=== PATIENT | female | born 1935 | race Caucasian/White ===

== ENCOUNTER 2021-07-07 13:40 | Emergency (ER) | payer MEDICARE, OTHER ==
[~2021-07-07] VITALS: Ht 165.1 cm; Wt 72.1 kg
[2021-07-07 13:54] LABS: COLLECTION METHOD CLEAN CATCH
[2021-07-07 14:00] LABS: PH 6 (5-8); SQUAMOUS EPITHELIAL 0-2 /hpf; URINE APPEARANCE Hazy; URINE BACTERIA None Seen /hpf; URINE BILIRUBIN Negative (NEGATIVE); URINE BLOOD Negative (NEGATIVE); URINE COLOR Yellow; URINE GLUCOSE Negative (NEGATIVE); URINE KETONE Negative (NEGATIVE); URINE LEUKOCYTE ESTERASE Trace (NEGATIVE); URINE NITRATE Negative (NEGATIVE); URINE PROTEIN(semi-quant) Negative (NEGATIVE); URINE RBC 0-2 /hpf; URINE UROBILINOGEN Negative (NEGATIVE)
[2021-07-07] MEDS ORDERED: ELIQUIS 5MG PO (14:01)
[2021-07-07] MEDS ORDERED: NORVASC2.5 MG PO (14:02)
[2021-07-07] MEDS ORDERED: SYNTHROID0.175 MG PO (14:03)
[2021-07-07] MEDS ORDERED: KLOR-CON20 MEQ PO (14:03)
[2021-07-07] MEDS ORDERED: LASIX 20MG TABL20 MG PO (14:04)
[2021-07-07 14:55] LABS: BASO # 0.1 (0.0-0.2); BASO % 0.7 % (0.0-2.0); EOS # 0.1 (0.0-0.7); GRAN % 58.8 % (42.2-75.2); HEMATOCRIT 38.3 % (37.0-47.0); HEMOGLOBIN 12.2 g/dl (12.5-16.0); LYMPH # 1.9 (1.2-3.4); LYMPH % 28.4 % (20.0-51.0); MEAN CELL VOLUME 87 fl (80.0-100.0); MEAN CORPUSCULAR HEMOGLOBIN 28 pg (27.0-31.0); MEAN CORPUSCULAR HGB CONC 32 g/dl (33.0-37.0); MEAN PLATELET VOLUME 9.3 fl (7.4-10.4); MONO # 0.7 (0.1-0.6); PLATELET COUNT 277 K/mm3 (130-400); RED BLOOD COUNT 4.42 M/mm3 (4.10-5.30); REDCELL DISTRIBUTION WIDTH-CV 17.5 % (11.5-14.5)
[2021-07-07 15:05] LABS: BILIRUBIN,TOTAL 1.1 mg/dL (0.0-1.0); CALCIUM 9.3 mg/dL (8.4-10.2); CREATININE, serum 0.67 (0.52-1.25); POTASSIUM 3.9 mmol/L (3.4-5.0); TOTAL PROTEIN 6.6 gm/dL (6.4-8.2)
[2021-07-07 15:17] LABS: TROPONIN-I 0.014 ng/mL (0.000-0.035)
[2021-07-07 15:27] LABS: INR 1.4 (0.8-3.0); PROTHROMBIN TIME 15.4 SECONDS (9.7-12.8)
[2021-07-07] MEDS ORDERED: LOPRESSOR 225 MG/TAB PO (16:23)
[2021-07-07 16:45] VITALS: BP 136/64; PULSE 72; TEMP 98.4
== END 2021-07-07 16:45 | disposition home or self-care (01) ==
LOC: COL.ER 13:40
PROVIDERS: Emergency Medicine
DX: I48.92 Unspecified atrial flutter (principal); E03.9 Hypothyroidism, unspecified; Z79.890 Hormone replacement therapy; Z79.01 Long term (current) use of anticoagulants

== ENCOUNTER 2022-05-18 12:12 | Emergency (ER) | payer MEDICARE, OTHER ==
[~2022-05-18] VITALS: Ht 162.6 cm; Wt 70.5 kg
[~2022-05-18 12:12] MED LIST: ELIQUIS 5MG PO; KLOR-CON20 MEQ PO; LASIX 20MG TABL20 MG PO; LOPRESSOR 225 MG/TAB PO; NORVASC2.5 MG PO; SYNTHROID0.175 MG PO
[2022-05-18 12:24] VITALS: TEMP 98.5
[2022-05-18 12:42] LABS: BASO # 0.1 K/mm3 (0.0-0.2); BASO % 0.8 % (0.0-2.0); EOS # 0.1 K/mm3 (0.0-0.7); EOS % 1.4 % (0.0-4.0); GRAN # 5.8 K/mm3 (1.4-6.5); GRAN % 56.7 % (42.2-75.2); HEMATOCRIT 47.3 % (37.0-47.0); HEMOGLOBIN 15.3 g/dl (12.5-16.0); LYMPH # 3.3 K/mm3 (1.2-3.4); LYMPH % 32.5 % (20.0-51.0); MEAN CELL VOLUME 94 fl (80.0-100.0); MEAN CORPUSCULAR HEMOGLOBIN 31 pg (27-31); MEAN CORPUSCULAR HGB CONC 32 g/dl (33.0-37.0); MEAN PLATELET VOLUME 9.5 fl (7.4-10.4); MONO # 0.8 K/mm3 (0.1-0.6); MONO % 8.3 % (1.7-9.3); PLATELET COUNT 247 K/mm3 (130-400); RED BLOOD COUNT 5.02 M/mm3 (4.10-5.30); REDCELL DISTRIBUTION WIDTH-CV 14.5 % (11.5-14.5)
[2022-05-18 13:00] LABS: ALBUMIN 3.6 gm/dL (3.4-4.8); BILIRUBIN,TOTAL 1.6 mg/dL (0.2-1.2); CALCIUM 9.8 mg/dL (8.4-10.2); CREATININE, serum 0.7 mg/dL (0.57-1.11); POTASSIUM 4.2 mmol/L (3.5-4.5); TOTAL PROTEIN 6.7 gm/dL (6.2-8.1)
[2022-05-18 13:02] LABS: TROPONIN-I 0.019 ng/mL (0.00-0.033)
[2022-05-18 16:05] VITALS: BP 117/65; PULSE 62
== END 2022-05-18 16:14 | disposition home or self-care (01) ==
LOC: COL.ER 12:12
PROVIDERS: Family Medicine
DX: I48.20 Chronic atrial fibrillation, unspecified (principal)
CPT/HCPCS: J7030

== ENCOUNTER 2022-06-01 08:48 | Emergency (ER) | payer MEDICARE, OTHER ==
[~2022-06-01] VITALS: Ht 162.6 cm; Wt 71.4 kg
[2022-06-01 08:57] VITALS: TEMP 99
[2022-06-01 09:27] LABS: BASO # 0.1 K/mm3 (0.0-0.2); BASO % 0.7 % (0.0-2.0); EOS # 0.2 K/mm3 (0.0-0.7); EOS % 2.9 % (0.0-4.0); GRAN # 3.7 K/mm3 (1.4-6.5); GRAN % 45.1 % (42.2-75.2); HEMOGLOBIN 14.6 g/dl (12.5-16.0); LYMPH # 3.4 K/mm3 (1.2-3.4); LYMPH % 41.4 % (20.0-51.0); MEAN CELL VOLUME 95 fl (80.0-100.0); MEAN CORPUSCULAR HEMOGLOBIN 31 pg (27-31); MEAN CORPUSCULAR HGB CONC 32 g/dl (33.0-37.0); MEAN PLATELET VOLUME 9.9 fl (7.4-10.4); MONO # 0.8 K/mm3 (0.1-0.6); MONO % 9.7 % (1.7-9.3); PLATELET COUNT 275 K/mm3 (130-400); RED BLOOD COUNT 4.72 M/mm3 (4.10-5.30)
[2022-06-01 09:32] LABS: PARTIAL THROMBOPLASTIN TIME 24.4 SECONDS (26.0-37.0)
[2022-06-01 09:37] LABS: ALBUMIN 3.4 gm/dL (3.4-4.8); BILIRUBIN,TOTAL 1.3 mg/dL (0.2-1.2); CALCIUM 9.9 mg/dL (8.4-10.2); CREATININE, serum 0.66 mg/dL (0.57-1.11); POTASSIUM 3.9 mmol/L (3.5-4.5); TOTAL PROTEIN 6.5 gm/dL (6.2-8.1)
[2022-06-01 09:57] LABS: INR 1.2 (0.8-3.0); PROTHROMBIN TIME 13.2 SECONDS (9.7-12.8); TROPONIN-I 0.017 ng/mL (0.00-0.033); TSH w REFLEX 2.362 uIU/mL (0.350-4.940)
[2022-06-01] MEDS ORDERED: MULTAQ400 MG PO (10:38)
[2022-06-01 11:55] VITALS: BP 121/69; PULSE 76
== END 2022-06-01 12:00 | disposition home or self-care (01) ==
LOC: COL.ER 08:48
PROVIDERS: Family Medicine
DX: I48.91 Unspecified atrial fibrillation (principal); Z88.8 Allergy status to other drugs, medicaments and biological substances
CPT/HCPCS: J7030

== ENCOUNTER 2023-12-13 13:43 | Outpatient (CLI) | payer MEDICARE, OTHER ==
[~2023-12-13] VITALS: Ht 162.6 cm; Wt 78.0 kg
[~2023-12-13 13:43] MED LIST changes: +MULTAQ400 MG PO
[2023-12-13 13:58] VITALS: BP 135/56; PULSE 66; TEMP 97.9
[2023-12-13] MEDS ORDERED: Denosumab 60 MG/ML SYRINGE SQ ONE (14:15)
== END 2023-12-13 14:53 ==
LOC: EUO 13:43
DX: M81.0 Age-related osteoporosis without current pathological fracture (principal)
CPT/HCPCS: J0897

== ENCOUNTER → 2024-04-24 | Outpatient (CLI) | payer MEDICARE, OTHER ==
[~2024-04-24] MED LIST changes: +Iohexol 300 - 100 ML VIAL IV ONE; +NS 100 ML IV SCH
== END ==
LOC: COL.RAD 14:26
DX: N28.1 Cyst of kidney, acquired (principal); J90 Pleural effusion, not elsewhere classified
CPT/HCPCS: Q9967

== ENCOUNTER 2024-06-08 15:34 | Inpatient (IN) | payer MEDICARE, OTHER ==
[~2024-06-08 15:34] MED LIST changes: -Iohexol 300 - 100 ML VIAL IV ONE; -NS 100 ML IV SCH; +SYNTHROID0.2 MG/TAB PO
[2024-06-11] VITALS (8 sets, daily range): BP systolic 129–150; BP diastolic 58–84; PULSE 56–78; TEMP 97.9–98.4
[2024-06-11] MEDS ORDERED: LIPITOR 40MG TA40 MG PO (08:48)
[2024-06-11] MEDS ORDERED: SINGULAIR 110 MG/TAB PO (08:49)
[2024-06-11] MEDS ORDERED: MULTAQ400 MG PO (08:50)
[2024-06-11] MEDS ORDERED: CALTRATE-600 W600 MG PO (08:53)
[2024-06-11] MEDS ORDERED: LUTEIN20 M1 PO (08:53)
[2024-06-11] MEDS ORDERED: RT ADVAIR 228 DISKUS (08:54)
[2024-06-11] MEDS ORDERED: PRESERVISION A1 EAC3 PO (08:55)
--- NOTE | 2024-06-11 09:18 | NUR ---
Patient arrived to room 311 at approximately 0835 from home. Patient here for Sotalol Initiation. Tele placed. EKG completed. Notified lab of need for lab drawn. Pt unsteady on her feet, uses a cane- placed on fall precautions.
[2024-06-11] MEDS ORDERED: Docusate Sodium 100 MG CAP PO PRN (09:45)
[2024-06-11] MEDS ORDERED: Acetaminophen 325 MG TAB PO PRN (09:45)
[2024-06-11] MEDS ORDERED: Temazepam 15 MG CAP PO PRN (09:45)
[2024-06-11 09:48] LABS: BASO % 0.6 % (0.0-2.0); EOS # 0.1 K/mm3 (0.0-0.7); EOS % 1.4 % (0.0-4.0); GRAN # 3.8 K/mm3 (1.4-6.5); HEMATOCRIT 41.8 % (37.0-47.0); HEMOGLOBIN 13.6 g/dl (12.5-16.0); LYMPH # 2.5 K/mm3 (1.2-3.4); LYMPH % 35.3 % (20.0-51.0); MEAN CELL VOLUME 96 fl (80.0-100.0); MEAN CORPUSCULAR HEMOGLOBIN 31 pg (27-31); MEAN CORPUSCULAR HGB CONC 33 g/dl (33.0-37.0); MEAN PLATELET VOLUME 9.6 fl (7.4-10.4); MONO # 0.6 K/mm3 (0.1-0.6); MONO % 8.6 % (1.7-9.3); PLATELET COUNT 237 K/mm3 (130-400); RED BLOOD COUNT 4.35 M/mm3 (4.10-5.30); REDCELL DISTRIBUTION WIDTH-CV 13.2 % (11.5-14.5)
[2024-06-11 10:00] LABS: ALBUMIN 3.3 g/dL (3.4-4.8); BILIRUBIN,TOTAL 1.2 mg/dL (0.2-1.2); CALCIUM 9.1 mg/dL (8.4-10.2); CREATININE, serum 0.76 mg/dL (0.57-1.11); MAGNESIUM 2.1 mg/dL (1.6-2.6); POTASSIUM 3.8 mEq/L (3.5-4.5); TOTAL PROTEIN 6.3 g/dl (6.2-8.1)
[2024-06-11 10:12] LABS: INR 1.6 (0.8-3.0); PROTHROMBIN TIME 17.5 SECONDS (9.7-12.8)
--- NOTE | 2024-06-11 11:45 | NUR ---
#20 started to LAC x1 attempt by Asha Bullock RN. Initial dose of Sotalol administered.
[2024-06-11] MEDS ORDERED: Formoterol 20 MCG,Budesonide 0.5 MG IH SCH (19:00)
--- NOTE | 2024-06-11 19:30 | NUR ---
Pt SBA with cane. Currently sitting up in chair. Fall precautions in place. Pt has chronic pancreatic pain, rating 2/10. Declines offer for medication.
--- NOTE | 2024-06-11 19:30 | NUR ---
Bedside report given to BRYCE Loo. Pt SBA with cane. Currently sitting up in chair. Fall precautions in place. Pt has chronic pancreatic pain, rating pain rating 2/10. Declines offer for medication.
[2024-06-11] MEDS ORDERED: Apixaban 5 MG TABLET PO SCH (21:00)
[2024-06-11] MEDS ORDERED: Montelukast 10 MG TAB PO SCH (21:00)
[2024-06-11] MEDS ORDERED: Atorvastatin 40 MG TAB PO SCH (21:00)
--- NOTE | 2024-06-11 23:55 | NUR ---
patient lying in bed, alert and oriented x4. denies chest pain and shortness of breath.IV in LAC is patent, site is CDI. no remarkable skin findings. fall precautions in place, call light within reach. pt has no further needs, questions or concerns at this time.
[2024-06-12] VITALS (14 sets, daily range): BP systolic 103–130; BP diastolic 60–74; PULSE 50–58; TEMP 97.7–98.3
--- NOTE | 2024-06-12 06:40 | NUR ---
PT RESTING IN BED. PT IS ON RA. PT IS SB ON TELE. PT IS AXOX4. PT HAS CALL LIGHT WITHIN REACH AND INSTRUCTED TO CALL WITH ALL NEEDS.
[2024-06-12 07:53] LABS: BASO % 0.7 % (0.0-2.0); EOS # 0.1 K/mm3 (0.0-0.7); GRAN # 2.5 K/mm3 (1.4-6.5); GRAN % 45.5 % (42.2-75.2); HEMATOCRIT 39.8 % (37.0-47.0); LYMPH # 2.3 K/mm3 (1.2-3.4); LYMPH % 41.1 % (20.0-51.0); MEAN CELL VOLUME 98 fl (80.0-100.0); MEAN CORPUSCULAR HEMOGLOBIN 32 pg (27-31); MEAN CORPUSCULAR HGB CONC 33 g/dl (33.0-37.0); MEAN PLATELET VOLUME 9.8 fl (7.4-10.4); MONO # 0.6 K/mm3 (0.1-0.6); MONO % 10.5 % (1.7-9.3); PLATELET COUNT 230 K/mm3 (130-400); RED BLOOD COUNT 4.07 M/mm3 (4.10-5.30); REDCELL DISTRIBUTION WIDTH-CV 13.3 % (11.5-14.5)
[2024-06-12 08:10] LABS: CALCIUM 8.7 mg/dL (8.4-10.2); CREATININE, serum 0.7 mg/dL (0.57-1.11); MAGNESIUM 2.1 mg/dL (1.6-2.6)
--- NOTE | 2024-06-12 08:30 | NUR ---
0815RAQUEL RN WITH CARDIOLOGY PAGED. RETURNED CALL RECEIVED. INFORMED THAT PTS HR IS 50-53 AND HAS SOTALOL SCHEDULED. STATES SHE WILL SPEAK WITH AND CALL BACK.
[2024-06-12] MEDS ORDERED: Lutein 20 MG CAP PO SCH (09:00)
[2024-06-12] MEDS ORDERED: Calcium Carb/Vit D3 500 mg-200 Units TAB PO SCH (09:00)
--- NOTE | 2024-06-12 15:33 | NUR ---
Industrial Psychology Professor met with patient to discuss discharge planning. Patient [place] with her daughter, Zenaida (ph#[phone]) and advised she and Zenaida sold their separate homes then purchased a home together. Patient sees Dr. Hayward for primary care and gets most of her medications through [facility]. Patient also uses [facility] on [address] as needed. Patient reported she has a cane, walker and rollator available at home and is normally independent with ADLS, including driving. Patient stated she has DPOA-HC completed designating her daughter, Zenaida and son, Blaine. Patient has another daughter, Michelle who lives in [place]. Patient plans to return home at time of discharge. Discharge Plan; Home
--- NOTE | 2024-06-13 00:13 | NUR ---
patient lying in bed, alert and oriented x4. denies chest pain and shortness of breath. no remarkable skin findings. fall precautions in place, call light within reach. pt has no further needs, questions or concerns at this time.
[2024-06-13 04:28] VITALS: BP 108/67; PULSE 50; TEMP 98.2
[2024-06-13 07:42] LABS: BASO % 0.4 % (0.0-2.0); EOS # 0.1 K/mm3 (0.0-0.7); EOS % 2.4 % (0.0-4.0); GRAN # 2.3 K/mm3 (1.4-6.5); GRAN % 41.2 % (42.2-75.2); HEMATOCRIT 38.5 % (37.0-47.0); HEMOGLOBIN 12.8 g/dl (12.5-16.0); LYMPH # 2.4 K/mm3 (1.2-3.4); LYMPH % 44.3 % (20.0-51.0); MEAN CELL VOLUME 96 fl (80.0-100.0); MEAN CORPUSCULAR HEMOGLOBIN 32 pg (27-31); MEAN CORPUSCULAR HGB CONC 33 g/dl (33.0-37.0); MEAN PLATELET VOLUME 9.8 fl (7.4-10.4); MONO # 0.6 K/mm3 (0.1-0.6); MONO % 11.5 % (1.7-9.3); PLATELET COUNT 237 K/mm3 (130-400); RED BLOOD COUNT 4.01 M/mm3 (4.10-5.30); REDCELL DISTRIBUTION WIDTH-CV 13.2 % (11.5-14.5)
[2024-06-13 08:00] LABS: CALCIUM 8.7 mg/dL (8.4-10.2); CREATININE, serum 0.71 mg/dL (0.57-1.11)
[2024-06-13 08:59] VITALS: BP 110/54; PULSE 55; TEMP 98.3
[2024-06-13] MEDS ORDERED: BETAPACE 120MG120 MG PO (08:59)
[2024-06-13 09:10] VITALS: BP_SYST 110
--- NOTE | 2024-06-13 09:15 | NUR ---
Assessment completed. Pt sitting in chair. Reports pain 2/10- patient has chronic pancreatitis pain. Denies need for medication. Plan to discharge today. Fall precautions in place.
[2024-06-13 10:07] VITALS: BP_SYST 115
--- NOTE | 2024-06-13 11:35 | NUR ---
Discharge instructions reviewed with patient- verbalizes understanding. INT to LFA d/c'd with cath tip intact. Tele d/c'd. Acquacel to LFA removed to LFA. Skin tear sites x2 and IV dressed with 2x2 and coban. Instructed the patient to get the gauze wet before removing to avoid bleeding. Pt escorted to private vehicle and discharged home with friend.
--- NOTE | 2024-06-13 11:35 | NUR ---
Discharge instructions reveiwed with patient. Pt verbalizes understanding. INT removed by SN Anselmo. Tele d/c'd. Pt escorted to private vehicle via w/c and discharged home with daughter.
== END 2024-06-13 11:55 | disposition home or self-care (01) | DRG 310 ==
LOC: MEDICAL 06-11 08:24
PROVIDERS: ADMIT Internal Medicine Cardiovascular Disease
DX: I48.0 Paroxysmal atrial fibrillation (principal); I35.1 Nonrheumatic aortic (valve) insufficiency; I10 Essential (primary) hypertension; E78.5 Hyperlipidemia, unspecified; E03.9 Hypothyroidism, unspecified; J45.909 Unspecified asthma, uncomplicated; K21.9 Gastro-esophageal reflux disease without esophagitis; M19.90 Unspecified osteoarthritis, unspecified site; Z79.01 Long term (current) use of anticoagulants; Z79.899 Other long term (current) drug therapy; Z79.890 Hormone replacement therapy; Z88.5 Allergy status to narcotic agent; Z88.7 Allergy status to serum and vaccine; Z88.8 Allergy status to other drugs, medicaments and biological substances

== ENCOUNTER 2024-07-13 11:49 | Emergency (ER) | payer MEDICARE, OTHER ==
[~2024-07-13] VITALS: Ht 165.1 cm; Wt 72.3 kg
[~2024-07-13 11:49] MED LIST changes: +BETAPACE 120MG120 MG PO; +CALTRATE-600 W600 MG PO; +LIPITOR 40MG TA40 MG PO; +LUTEIN20 M1 PO; +PRESERVISION A1 EAC3 PO; +RT ADVAIR 228 DISKUS; +SINGULAIR 110 MG/TAB PO
[2024-07-13 12:23] LABS: BASO % 0.5 % (0.0-2.0); EOS # 0.1 K/mm3 (0.0-0.7); EOS % 1.6 % (0.0-4.0); GRAN # 3.1 K/mm3 (1.4-6.5); GRAN % 50.1 % (42.2-75.2); HEMOGLOBIN 14.9 g/dl (12.5-16.0); LYMPH # 2.4 K/mm3 (1.2-3.4); LYMPH % 38.9 % (20.0-51.0); MEAN CELL VOLUME 96 fl (80.0-100.0); MEAN CORPUSCULAR HEMOGLOBIN 32 pg (27-31); MEAN CORPUSCULAR HGB CONC 33 g/dl (33.0-37.0); MEAN PLATELET VOLUME 9.5 fl (7.4-10.4); MONO # 0.5 K/mm3 (0.1-0.6); MONO % 8.6 % (1.7-9.3); PLATELET COUNT 266 K/mm3 (130-400); RED BLOOD COUNT 4.68 M/mm3 (4.10-5.30); REDCELL DISTRIBUTION WIDTH-CV 13.3 % (11.5-14.5)
[2024-07-13 12:48] LABS: ALBUMIN 3.3 g/dL (3.4-4.8); BILIRUBIN,TOTAL 1.2 mg/dL (0.2-1.2); CALCIUM 10.2 mg/dL (8.4-10.2); CREATININE, serum 0.78 mg/dL (0.57-1.11); POTASSIUM 3.9 mEq/L (3.5-4.5); TOTAL PROTEIN 6.3 g/dl (6.2-8.1)
[2024-07-13 12:50] VITALS: BP 108/62; PULSE 54; TEMP 98.6
[2024-07-13 13:06] LABS: TROPONIN-I 0.049 ng/mL (0.00-0.033)
== END 2024-07-13 12:50 | disposition home or self-care (01) ==
LOC: COL.ER 11:49
PROVIDERS: Family Medicine
DX: I48.91 Unspecified atrial fibrillation (principal); Z79.01 Long term (current) use of anticoagulants; Z79.899 Other long term (current) drug therapy

== ENCOUNTER 2024-08-06 13:23 | Emergency (ER) | payer MEDICARE, OTHER ==
[~2024-08-06] VITALS: Ht 162.6 cm; Wt 72.3 kg
[~2024-08-06 13:23] MED LIST changes: -RT ADVAIR 228 DISKUS; +RT ADVAIR 228 DISKUS IH
[2024-08-06 13:54] LABS: BASO # 0.1 K/mm3 (0.0-0.2); BASO % 0.6 % (0.0-2.0); EOS # 0.1 K/mm3 (0.0-0.7); EOS % 1.5 % (0.0-4.0); GRAN # 4.4 K/mm3 (1.4-6.5); GRAN % 53.8 % (42.2-75.2); HEMATOCRIT 45.7 % (37.0-47.0); LYMPH % 36.3 % (20.0-51.0); MEAN CELL VOLUME 95 fl (80.0-100.0); MEAN CORPUSCULAR HEMOGLOBIN 31 pg (27-31); MEAN CORPUSCULAR HGB CONC 33 g/dl (33.0-37.0); MEAN PLATELET VOLUME 9.4 fl (7.4-10.4); MONO # 0.6 K/mm3 (0.1-0.6); MONO % 7.6 % (1.7-9.3); PLATELET COUNT 259 K/mm3 (130-400); RED BLOOD COUNT 4.79 M/mm3 (4.10-5.30); REDCELL DISTRIBUTION WIDTH-CV 13.2 % (11.5-14.5)
[2024-08-06 14:43] LABS: ALBUMIN 3.5 g/dL (3.4-4.8); BILIRUBIN,TOTAL 1.5 mg/dL (0.2-1.2); CALCIUM 9.7 mg/dL (8.4-10.2); CREATININE, serum 0.69 mg/dL (0.57-1.11); POTASSIUM 3.8 mEq/L (3.5-4.5); TOTAL PROTEIN 5.9 g/dl (6.2-8.1)
[2024-08-06 15:00] LABS: TROPONIN-I 0.041 ng/mL (0.00-0.033)
[2024-08-06 16:15] VITALS: BP 134/63; PULSE 55
--- NOTE | 2024-08-06 17:27 | NUR ---
At [address] Pal. Pt bagged during procedure for approximately 10 minutes. Tolerated well.
== END 2024-08-06 16:15 | disposition home or self-care (01) ==
LOC: COL.ER 13:23
PROVIDERS: Personal Emergency Response Attendant
DX: I48.0 Paroxysmal atrial fibrillation (principal); Z79.01 Long term (current) use of anticoagulants
CPT/HCPCS: J2704

== ENCOUNTER 2024-08-09 20:12 | Inpatient (IN) | payer MEDICARE ==
[~2024-08-09] VITALS: Ht 162.6 cm; Wt 67.3 kg
[2024-08-09 20:51] LABS: BASO # 0.1 K/mm3 (0.0-0.2); BASO % 0.8 % (0.0-2.0); EOS # 0.1 K/mm3 (0.0-0.7); EOS % 1.8 % (0.0-4.0); GRAN # 2.9 K/mm3 (1.4-6.5); GRAN % 44.6 % (42.2-75.2); HEMATOCRIT 39.3 % (37.0-47.0); HEMOGLOBIN 13.2 g/dl (12.5-16.0); LYMPH # 2.8 K/mm3 (1.2-3.4); LYMPH % 42.2 % (20.0-51.0); MEAN CELL VOLUME 95 fl (80.0-100.0); MEAN CORPUSCULAR HEMOGLOBIN 32 pg (27-31); MEAN CORPUSCULAR HGB CONC 34 g/dl (33.0-37.0); MEAN PLATELET VOLUME 9.6 fl (7.4-10.4); MONO # 0.7 K/mm3 (0.1-0.6); MONO % 10.4 % (1.7-9.3); PLATELET COUNT 230 K/mm3 (130-400); RED BLOOD COUNT 4.14 M/mm3 (4.10-5.30); REDCELL DISTRIBUTION WIDTH-CV 13.2 % (11.5-14.5)
[2024-08-09 20:56] LABS: COLLECTION METHOD CLEAN CATCH
[2024-08-09 21:05] LABS: PH 6.5 (5.0-8.5); URINE APPEARANCE CLEAR (CLEAR/HAZY); URINE BLOOD 3+ (NEGATIVE); URINE COLOR YELLOW (YELLOW); URINE GLUCOSE NEGATIVE (NEGATIVE); URINE KETONE NEGATIVE (NEGATIVE); URINE NITRATE NEGATIVE (NEGATIVE); URINE PROTEIN(semi-quant) NEGATIVE (NEGATIVE); URINE UROBILINOGEN 0.2 E.U/dL (0.2-1.0)
[2024-08-09 21:17] LABS: ALBUMIN 3.4 g/dL (3.4-4.8); BILIRUBIN,TOTAL 1.1 mg/dL (0.2-1.2); CALCIUM 9.9 mg/dL (8.4-10.2); CREATININE, serum 0.69 mg/dL (0.57-1.11); MAGNESIUM 2.3 mg/dL (1.6-2.6); POTASSIUM 3.8 mEq/L (3.5-4.5); TOTAL PROTEIN 6.2 g/dl (6.2-8.1)
[2024-08-09 21:26] LABS: TROPONIN-I 0.044 ng/mL (0.00-0.033)
[2024-08-09] MEDS ORDERED: Acetaminophen 325 MG TAB PO PRN (22:30)
[2024-08-09 23:11] VITALS: BP 135/88; PULSE 101; TEMP 98.2
[2024-08-09 23:55] VITALS: BP 135/88
[2024-08-10] VITALS (21 sets, daily range): BP systolic 95–146; BP diastolic 48–106; PULSE 50–117; TEMP 98–98.7
--- NOTE | 2024-08-10 00:05 | NUR ---
received report from BRYCE Astorga. patient arrived from ED around 2320, alert and oriented x4. denies chest pain but reports slight discomfort rated 1/10, refuses offered interventions at this time, denies shortness of breath. IV in RAC is patent, site CDI. no remarkable skin findings, small scattered bruising to BLE and slight nonpitting edema noted. pt aware of NPO status. steady gait with SBA and walker. fall precautions in place, call light within reach. pt has no further nees, questions, or concerns at this time.
--- NOTE | 2024-08-10 00:46 | NUR ---
0046- attempt to call DR. Zazueta for cardio consult per contulting orders, response received: "let morning choir leader know for tomorrow, only hvac commercial salesperson for emergencies. please don't call during sleeping hours, I would like to sleep."
[2024-08-10 03:11] LABS: BASO % 0.6 % (0.0-2.0); EOS # 0.1 K/mm3 (0.0-0.7); EOS % 1.8 % (0.0-4.0); GRAN # 3.4 K/mm3 (1.4-6.5); GRAN % 47.5 % (42.2-75.2); HEMATOCRIT 37.9 % (37.0-47.0); HEMOGLOBIN 12.8 g/dl (12.5-16.0); LYMPH # 2.9 K/mm3 (1.2-3.4); LYMPH % 39.6 % (20.0-51.0); MEAN CELL VOLUME 94 fl (80.0-100.0); MEAN CORPUSCULAR HEMOGLOBIN 32 pg (27-31); MEAN CORPUSCULAR HGB CONC 34 g/dl (33.0-37.0); MEAN PLATELET VOLUME 10.6 fl (7.4-10.4); MONO # 0.8 K/mm3 (0.1-0.6); MONO % 10.4 % (1.7-9.3); PLATELET COUNT 216 K/mm3 (130-400); RED BLOOD COUNT 4.03 M/mm3 (4.10-5.30); REDCELL DISTRIBUTION WIDTH-CV 13.2 % (11.5-14.5)
[2024-08-10 03:51] LABS: CALCIUM 9.3 mg/dL (8.4-10.2); CREATININE, serum 0.67 mg/dL (0.57-1.11); POTASSIUM 4.4 mEq/L (3.5-4.5)
--- NOTE | 2024-08-10 08:28 | NUR ---
Patient resting in bed, alert and oriented x 4, states some tolerable chest pain, assessment completed. Aware of NPO. Awaiting for desk director. No further needs at this time. Call light within reach.
[2024-08-10] MEDS ORDERED: Apixaban 5 MG TABLET PO SCH (09:00)
--- NOTE | 2024-08-10 09:02 | NUR ---
Weaver Wire Loom met with patient and her daughter, Zenaida (ph#[phone]) to discuss discharge planning. Patient lives in [place] and she and her daughter Zenaida live together. Patient sees Dr. Hayward for primary care and was supposed to have an appointment with her today. Patient also sees Dr. Pendleton for primary care. Patient gets most of her medications through [facility] and uses [facility] as needed. Patient uses a walker for ambulation and has no oxygen needs. Patient does not drive anymore and relies on family to take her places. Edinson reported her daughter, Zenaida and son, Blaine are her designated DPOA-HC. Patient plans to return home at time of discharge. SW discussed Home Health with patient and she isn't sure if she will need it. PT/OT james pending. Discharge Plan: Home
[2024-08-10] MEDS ORDERED: Heparin 5,000 UNITS/ML 1 ML VIAL IV PRN (09:30)
[2024-08-10] MEDS ORDERED: Heparin/D5W 250 ML IV SCH (09:30)
--- NOTE | 2024-08-10 10:34 | NUR ---
Cardizem gtt started per orders.
--- NOTE | 2024-08-10 11:06 | NUR ---
Call from lab with last troponing level 0.056, reported to Dr. Mix. No further orthers since pt already starting new therapy.
[2024-08-10 11:08] LABS: PARTIAL THROMBOPLASTIN TIME 35.1 SECONDS (26.0-37.0)
--- NOTE | 2024-08-10 13:15 | NUR ---
Call placed to Jesusita RN of booster pump operator, about BP droping to 95/48. Cardizem gtt placed on hold per orders.
[2024-08-10] MEDS ORDERED: 1/2 NS 500 ML IV SCH (13:45)
--- NOTE | 2024-08-10 14:02 | NUR ---
Started diltiazem gtt at new rate 2.5mg hr.
--- NOTE | 2024-08-10 14:26 | NUR ---
[employer] placed DPOA-HC on chart.
--- NOTE | 2024-08-10 18:00 | NUR ---
Hep gtt put on hold per protocol. To recheck levels in 2 hrs.
--- NOTE | 2024-08-10 18:30 | NUR ---
Patient has been tolerating terapy. BP AND HR WNL. Still AFIB. Report will be given to night RN.
[2024-08-10] MEDS ORDERED: Formoterol 20 MCG,Budesonide 0.5 MG IH SCH (19:00)
[2024-08-10] MEDS ORDERED: Montelukast 10 MG TAB PO SCH (21:00)
[2024-08-10] MEDS ORDERED: Atorvastatin 40 MG TAB PO SCH (21:00)
[2024-08-10 21:30] LABS: PARTIAL THROMBOPLASTIN TIME 41.3 SECONDS (26.0-37.0)
[2024-08-11] VITALS (12 sets, daily range): BP systolic 111–141; BP diastolic 61–85; PULSE 80–132; TEMP 98.2–98.8
[2024-08-11 04:06] LABS: BASO % 0.5 % (0.0-2.0); EOS # 0.2 K/mm3 (0.0-0.7); EOS % 2.3 % (0.0-4.0); GRAN # 2.5 K/mm3 (1.4-6.5); GRAN % 38.7 % (42.2-75.2); HEMOGLOBIN 12.2 g/dl (12.5-16.0); LYMPH # 3.2 K/mm3 (1.2-3.4); LYMPH % 48.4 % (20.0-51.0); MEAN CELL VOLUME 95 fl (80.0-100.0); MEAN CORPUSCULAR HEMOGLOBIN 32 pg (27-31); MEAN CORPUSCULAR HGB CONC 34 g/dl (33.0-37.0); MEAN PLATELET VOLUME 9.7 fl (7.4-10.4); MONO # 0.7 K/mm3 (0.1-0.6); MONO % 9.9 % (1.7-9.3); PLATELET COUNT 213 K/mm3 (130-400); RED BLOOD COUNT 3.84 M/mm3 (4.10-5.30); REDCELL DISTRIBUTION WIDTH-CV 13.5 % (11.5-14.5)
[2024-08-11 04:07] LABS: HEMATOCRIT 36.3 % (37.0-47.0)
[2024-08-11 04:16] LABS: PARTIAL THROMBOPLASTIN TIME 98.6 SECONDS (26.0-37.0)
[2024-08-11 04:18] LABS: CALCIUM 8.8 mg/dL (8.4-10.2); CREATININE, serum 0.67 mg/dL (0.57-1.11); POTASSIUM 3.6 mEq/L (3.5-4.5)
--- NOTE | 2024-08-11 06:08 | NUR ---
0345 PTT AT GOAL, HEPARIN INFUSING @ 900 UNITS/HR, CARDIZEM @ 2.5ML/HR, NEXT PTT ORDERED FOR 0945, REMAINS IN AFIB, RATE < 100
--- NOTE | 2024-08-11 10:04 | NUR ---
Assessment completed. Pt resting in bed, watching tv. Reports chronic "pancreas" pain 01/24. Tylenol administered po for c/o pain. Denies nausea. Reports SOA with exertion, Heparin and Cardizem infusing without s/s IV related complications. Fall precautions in place.
[2024-08-11 10:38] LABS: PARTIAL THROMBOPLASTIN TIME 123.7 SECONDS (26.0-37.0)
--- NOTE | 2024-08-11 12:34 | NUR ---
Data: Patient declined spiritual care visit offered during Breaker Engineer rounds. Assessment: None at this time. Plan of Care: Chaplains will remain available as needed/requested while Patient is admitted to this hospital.
--- NOTE | 2024-08-11 17:17 | NUR ---
Patient's IV to RAC leaked earlier this afternoon- IV d/c'd with cath tip intact. BRYCE Danielson from ED started #20 to LFA- which infilltration approximately 2 hours after insertion. Pt c/o tenderness and infilltration around site noted- IV d/c'd with cath tip intact. Called BRYCE Danielson from ED to request new IV start. Cardizem on hold at this time until IV access obtained.
--- NOTE | 2024-08-11 17:48 | NUR ---
PTT result rec'd. No change in rate per protocol.
--- NOTE | 2024-08-11 18:30 | NUR ---
Contacted the House Supervisior, BRYCE Knapp to remind of IV start.
[2024-08-12] VITALS (12 sets, daily range): BP systolic 109–130; BP diastolic 66–81; PULSE 72–89; TEMP 97.6–98.2
[2024-08-12 06:30] LABS: HEMOGLOBIN 12.4 g/dl (12.5-16.0); MEAN CELL VOLUME 93 fl (80.0-100.0); MEAN CORPUSCULAR HEMOGLOBIN 32 pg (27-31); MEAN CORPUSCULAR HGB CONC 34 g/dl (33.0-37.0); MEAN PLATELET VOLUME 10.8 fl (7.4-10.4); PLATELET COUNT 185 K/mm3 (130-400); RED BLOOD COUNT 3.93 M/mm3 (4.10-5.30); REDCELL DISTRIBUTION WIDTH-CV 13.3 % (11.5-14.5)
[2024-08-12 06:35] LABS: CREATININE, serum 0.65 mg/dL (0.57-1.11)
[2024-08-12 06:36] LABS: HEMATOCRIT 36.7 % (37.0-47.0)
[2024-08-12 06:58] LABS: PARTIAL THROMBOPLASTIN TIME 82.8 SECONDS (26.0-37.0)
--- NOTE | 2024-08-12 07:20 | NUR ---
PTT resulted- no change in rate per protocol. Next PTT due in am.
--- NOTE | 2024-08-12 07:35 | NUR ---
Assessment completed. Pt a/o x4. SBA to bathroom then to chair to eat breakfast. Rates "pancreas" pain 10/26. Heparin and Cardizem infusing as ordered- Heparin to RFA and Cardizem to LFA.
--- NOTE | 2024-08-12 14:31 | NUR ---
Pt sat up in chair since breakfast. SBA to bathroom and then bed. Fall precautions in place.
[2024-08-13] VITALS (15 sets, daily range): BP systolic 100–126; BP diastolic 54–84; PULSE 77–111; TEMP 97.8–98.1
--- NOTE | 2024-08-13 05:01 | NUR ---
IV with cardizem infusion in LFA infiltrated @ 0400, site dc'd. IV attempts x2 by this RN and x2 by housekeeper home BRYCE Sykes, Doctor Alana from ED attempting to place IV using U/S.
--- NOTE | 2024-08-13 05:34 | NUR ---
DR PLEITEZ UNABLE TO GET IV, ASAEL Wright APRN NOTIFIED. OK TO LEAVE [facility] ON HOLD FOR NOW, WILL ORDER PICC LINE PLACEMENT.
[2024-08-13] MEDS ORDERED: ceFAZolin 1 G in Water For Injection,Sterile 10 ML IV SCH ×2 (06:00→13:43)
[2024-08-13 06:53] LABS: CREATININE, serum 0.69 mg/dL (0.57-1.11); POTASSIUM 3.9 mEq/L (3.5-4.5)
[2024-08-13] MEDS ORDERED: 1/2 NS 1,000 ML IV SCH (08:00)
--- NOTE | 2024-08-13 10:47 | NUR ---
PATIENT DOWN TO SALON COORDINATOR AT APPROX 1030. ALERT AND ORIENTED.
[2024-08-13] MEDS ORDERED: NS 1,000 ML IV.SOLN. IR SCH (11:34)
[2024-08-13] MEDS ORDERED: fentaNYL 50 MCG/ML 2 ML VIAL IV SCH (12:14)
[2024-08-13] MEDS ORDERED: Midazolam 2 MG/2 ML VIAL IV SCH (12:16)
[2024-08-13] MEDS ORDERED: Topical Skin Adhesive 1 EACH (1 ML) TOP ONE (12:21)
--- NOTE | 2024-08-13 13:00 | NUR ---
Mary is transferred to surgical floor rm 323 after ppm implant with DR. López. Mary is drowsy, pwd with reg and unlabored respirations. dressing to pacer site is CDI. bs report and handoff of care to Lawrence WU. Please see merge report in paper chart for record of procedure.
--- NOTE | 2024-08-13 13:06 | NUR ---
PATIENT RETURNS FROM [employer] [employer] AT APPROX 1300. PATIENT IS DROWSY, BUT AROUSES WHEN SPOKEN TOO. VSS. POST OP VS INITIATED/ INCISION SITE TO LEFT CHEST IS COVERED WITH GUAZE AND TAPE. ICE APPLIED. DAUGHTER AT BEDSIDE. CALL LIGHT WITHIN REACH.
[2024-08-13] MEDS ORDERED: Apixaban 5 MG TABLET PO SCH ×2 (13:15→21:00)
--- NOTE | 2024-08-13 16:06 | NUR ---
collision worker was notified patient may be ready for discharge tomorrow. CARINA and CARINA Roman met with patient and reviewed the important message from medicare. Patient was drifting in and out of sleep. CARINA explained she would return tomorrow to review again and obtain signature. Discharge plan: Home
--- NOTE | 2024-08-13 21:08 | NUR ---
Patient assessed around 1999. Alert and oriented, and able to make needs known. Denies having pain and discomfort. Peripheral INT to right forearm. Denies SOB and dyspnea. LS CTA. HRI. Telemetry in place-Aflutter. Dressing to pacemaker site is CDI. Ice to site. Sling to left arm. BSAx4. No edema. Voices no questions, needs, or concerns at this time. In bed with call light within reach.
[2024-08-14] VITALS (7 sets, daily range): BP systolic 113–155; BP diastolic 77–83; PULSE 60; TEMP 97.8–98.3
--- NOTE | 2024-08-14 06:04 | NUR ---
Patient has denied needing any further Tylenol this shift. Dressing to pacemaker is CDI. sling to left arm. Voices no questions, needs, or concerns at this time. In bed with call light within reach.
[2024-08-14 08:00] LABS: CALCIUM 9.1 mg/dL (8.4-10.2); CREATININE, serum 0.6 mg/dL (0.57-1.11); POTASSIUM 4.1 mEq/L (3.5-4.5)
[2024-08-14] MEDS ORDERED: Famotidine 20 MG TAB PO SCH (09:00)
--- NOTE | 2024-08-14 09:55 | NUR ---
dye house vat worker attended interdisciplinary clinical rounding with Dr. Carroll. Patient is pending cardiology clearance but from a hospitalist stand point she is medically ready. SW met with patient to review important message from Medicare. Patient understood and had no questions. Patient signed the form. SW made copy, placed original in chart and provided copy to patient. SW discussed home health and patient did not feel she would need those services at this time. SW contacted patient's daughter, Zenaida, and expressed patient is pending clearance from cardiology but the hospitalist has medically cleared her from their standpoint. SW reviewed the important message from Medicare with daughter. Zenaida understood and had no questions or concerns. SW discussed home health. Zenaida stated she lives with patient and did not feel it was needed at this time. Zenaida stated she would be working from home once patient discharges for a week or two to monitor her. Zenaida would like a call from nurse once discharge paperwork is ready so she could cigar packer and picker patient. SW notified patient's nurse of the above information. Discharge plan: Home
[2024-08-14 10:34] LABS: BASO % 0.3 % (0.0-2.0); EOS # 0.1 K/mm3 (0.0-0.7); EOS % 1.7 % (0.0-4.0); GRAN # 3.9 K/mm3 (1.4-6.5); GRAN % 58.4 % (42.2-75.2); HEMOGLOBIN 12.3 g/dl (12.5-16.0); LYMPH # 1.9 K/mm3 (1.2-3.4); MEAN CELL VOLUME 96 fl (80.0-100.0); MEAN CORPUSCULAR HEMOGLOBIN 32 pg (27-31); MEAN CORPUSCULAR HGB CONC 33 g/dl (33.0-37.0); MONO # 0.7 K/mm3 (0.1-0.6); MONO % 10.3 % (1.7-9.3); PLATELET COUNT 194 K/mm3 (130-400); RED BLOOD COUNT 3.86 M/mm3 (4.10-5.30); REDCELL DISTRIBUTION WIDTH-CV 13.9 % (11.5-14.5)
[2024-08-14] MEDS ORDERED: BETAPACE 120MG120 MG PO (11:50)
[2024-08-14] MEDS ORDERED: CEPHALEXIN500 M1 PO (11:51)
[2024-08-14] MEDS ORDERED: Cephalexin 500 MG CAP PO SCH (21:00)
[2024-08-17] MEDS ORDERED: BETAPACE 80MG80 MG PO (13:44)
== END 2024-08-14 13:59 | disposition home or self-care (01) | DRG 262 ==
LOC: COL.ER 20:12 → EDBEDREQ 22:20 → SURG 22:22
PROVIDERS: Emergency Medicine; Internal Medicine; Internal Medicine Cardiovascular Disease; Physician Assistant; ADMIT Internal Medicine
PROC: 02H63JZ Insertion of Pacemaker Lead into Right Atrium, Percutaneous Approach (ICD-10-PCS; principal; 2024-08-13)
PROC: 02HK3JZ Insertion of Pacemaker Lead into Right Ventricle, Percutaneous Approach (ICD-10-PCS; 2024-08-13)
PROC: 02HK0JZ Insertion of Pacemaker Lead into Right Ventricle, Open Approach (ICD-10-PCS; 2024-08-13)
DX: I48.0 Paroxysmal atrial fibrillation (principal); E03.9 Hypothyroidism, unspecified; E78.5 Hyperlipidemia, unspecified; Z79.899 Other long term (current) drug therapy; Z79.890 Hormone replacement therapy; Z88.5 Allergy status to narcotic agent; Z88.8 Allergy status to other drugs, medicaments and biological substances; Z79.01 Long term (current) use of anticoagulants; Z91.89 Other specified personal risk factors, not elsewhere classified; Z87.19 Personal history of other diseases of the digestive system; Z86.79 Personal history of other diseases of the circulatory system; J45.909 Unspecified asthma, uncomplicated
CPT/HCPCS: C1769; C1785; C1894; C1898; G0378; J0665-JZ; J0690; J1644; J2250; J3010; J7030

== ENCOUNTER 2024-08-20 09:44 | Inpatient (IN) | payer MEDICARE, OTHER ==
[~2024-08-20] VITALS: Ht 162.6 cm; Wt 74.0 kg
[2024-08-20] VITALS (13 sets, daily range): BP systolic 110–146; BP diastolic 51–72; PULSE 69–74; TEMP 97.8–98.6; O2SAT 96
[~2024-08-20 09:44] MED LIST changes: +BETAPACE 80MG80 MG PO; +CEPHALEXIN500 M1 PO
[2024-08-20] MEDS ORDERED: NS 1,000 ML IV ONE (10:15)
[2024-08-20 10:26] LABS: BASO % 0.5 % (0.0-2.0); EOS # 0.1 K/mm3 (0.0-0.7); EOS % 0.9 % (0.0-4.0); GRAN # 5.3 K/mm3 (1.4-6.5); GRAN % 60.8 % (42.2-75.2); HEMATOCRIT 40.5 % (37.0-47.0); HEMOGLOBIN 13.3 g/dl (12.5-16.0); LYMPH # 2.5 K/mm3 (1.2-3.4); LYMPH % 29.1 % (20.0-51.0); MEAN CELL VOLUME 96 fl (80.0-100.0); MEAN CORPUSCULAR HEMOGLOBIN 32 pg (27-31); MEAN CORPUSCULAR HGB CONC 33 g/dl (33.0-37.0); MEAN PLATELET VOLUME 9.6 fl (7.4-10.4); MONO # 0.7 K/mm3 (0.1-0.6); MONO % 8.4 % (1.7-9.3); PLATELET COUNT 226 K/mm3 (130-400); RED BLOOD COUNT 4.21 M/mm3 (4.10-5.30); REDCELL DISTRIBUTION WIDTH-CV 13.6 % (11.5-14.5)
[2024-08-20 10:32] LABS: INR 1.4 (0.8-3.0); PROTHROMBIN TIME 15.3 SECONDS (9.7-12.8)
[2024-08-20 11:00] LABS: ALBUMIN 3.2 g/dL (3.4-4.8); BILIRUBIN,TOTAL 1.1 mg/dL (0.2-1.2); CALCIUM 9.2 mg/dL (8.4-10.2); CREATININE, serum 0.69 mg/dL (0.57-1.11); POTASSIUM 3.9 mEq/L (3.5-4.5); TOTAL PROTEIN 6.1 g/dl (6.2-8.1)
[2024-08-20 11:07] LABS: TROPONIN-I 0.017 ng/mL (0.00-0.033)
[2024-08-20] MEDS ORDERED: NS 1,000 ML IV SCH (14:00)
[2024-08-20] MEDS ORDERED: Lidocaine PF 2% (20 MG/ML) 5 ML VIAL ONE (14:01)
--- NOTE | 2024-08-20 15:25 | NUR ---
Please see moderate sedation flowsheet and anesthesia flowsheet in paper chart for record of THOR/CV with DR. Pendleton.
--- NOTE | 2024-08-20 16:13 | NUR ---
SEE PAPER CHART FOR COMPLETE IN PROCEDURE MONITOR. ANESTHESIA PRESENT FOR SEDATION. PATIENT TOLERATED PROCEDURE WELL. REPORT GIVEN TO VONDA WU AND PATIENT TRANSFERRED TO MEDICAL UNIT.
--- NOTE | 2024-08-20 17:08 | NUR ---
SW met with patient to discuss voting protocol as tomorrow (08/21/2024) is Election Day. Patient stated that she has already voted.
--- NOTE | 2024-08-20 17:17 | NUR ---
PATIENT ARRIVED TO MEDICAL FLOOR AT APPROX 1550. PATIENT IS ALERT AND ORIENTED. POST OP VS INITIATED. VSS, PATIENT ON RA. DENIES PAIN OR DISCOMFORT AT THIS TIME. ADMISSION INTAKE AND ASSESSMENT COMPLETE. MED REC COMPLETE. INCISION TO LEFT CHEST IS OPEN TO AIR, CDI. DAUGHTER AT BEDSIDE.
[2024-08-20] MEDS ORDERED: Albuterol/Ipratropium 3 MG-0.5 MG/3 ML Neb Soln IH PRN (17:30)
[2024-08-20] MEDS ORDERED: Formoterol 20 MCG,Budesonide 0.5 MG IH SCH (19:00)
[2024-08-20] MEDS ORDERED: Atorvastatin 40 MG TAB PO SCH (21:00)
[2024-08-20] MEDS ORDERED: Apixaban 5 MG TABLET PO SCH (21:00)
[2024-08-20] MEDS ORDERED: Calcium Carb/Vit D3 500 mg-5 mcg(200 Units) TAB PO SCH (21:00)
[2024-08-20] MEDS ORDERED: Montelukast 10 MG TAB PO SCH (21:00)
[2024-08-21] VITALS (8 sets, daily range): BP systolic 113–141; BP diastolic 69–83; PULSE 69–72; TEMP 97.6–98.9
[2024-08-21 06:39] LABS: CALCIUM 9.2 mg/dL (8.4-10.2); CREATININE, serum 0.59 mg/dL (0.57-1.11); MAGNESIUM 2.1 mg/dL (1.6-2.6); POTASSIUM 3.7 mEq/L (3.5-4.5)
[2024-08-21] MEDS ORDERED: Lutein 20 MG CAP PO SCH (09:00)
--- NOTE | 2024-08-21 12:10 | NUR ---
STUDENT SCHEDULING ADMINISTRATOR NOTIFIED THIS RN OF RR OF 24. THIS RN REASSESSED PATIENT. RESP WNL. PATIENT DENIES CHEST PAIN OR SOA. TELEMETY MONITORING IN PLACE; PATIENT REMAINS IN NSR.
--- NOTE | 2024-08-21 13:59 | NUR ---
THIS RN PROVIDED PATIENT WITH DISCHARGE EDUCATION AND INSTRUCTIONS. ALL QUESTIONS ANSWERED.
--- NOTE | 2024-08-21 14:00 | NUR ---
PATIENT ESCORTED OFF UNIT VIA WHEELCHAIR BY PCT. ALL BELONGINGS WITH PATIENT.
--- NOTE | 2024-08-21 14:27 | NUR ---
D: Supervisor Shipping Room stopped by room on rounds. A: Pt was leaving as asset protection officer walked into the room P: Supervisor Shipping Room sent them off with [facility] and let them know that if they needed anything to let us know.
--- NOTE | 2024-08-21 16:00 | NUR ---
CARINA met with patient to complete discharge planning. Patient lives in [place] with her daughter, Zenaida, ph# . Patient confirmed Medicare A&B insurance. PCP is Dr. Hayward. Pharmacy used is [facility] or [facility] (if medications are urgent). Patient reports no concerns affording medications. Patient is able to bathe, use the toilet, and dress herself independently. Patient uses a cane, walker, and rollator at home. Patient also uses a shower chair and has grab bars in bathroom and shower area. 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 Patient previously completed DPOA-HC and designated her children, Zenaida and Blaine. CARINA verified Blaine's ph# . Discharge Plan: Home
== END 2024-08-21 13:00 | disposition home or self-care (01) | DRG 310 ==
LOC: COL.ER 09:44 → MEDICAL 13:00
PROVIDERS: Emergency Medicine; ADMIT Internal Medicine
PROC: 5A2204Z Restoration of Cardiac Rhythm, Single (ICD-10-PCS; principal; 2024-08-20)
DX: I48.91 Unspecified atrial fibrillation (principal); E03.9 Hypothyroidism, unspecified; E78.5 Hyperlipidemia, unspecified; I48.0 Paroxysmal atrial fibrillation; Z79.01 Long term (current) use of anticoagulants; I10 Essential (primary) hypertension; Z95.0 Presence of cardiac pacemaker; J45.909 Unspecified asthma, uncomplicated; M19.90 Unspecified osteoarthritis, unspecified site; Z79.51 Long term (current) use of inhaled steroids
CPT/HCPCS: J2704; J7030; J7040